=== PATIENT | female | born 1950 | race Caucasian/White ===

== ENCOUNTER → 2020-11-21 | Outpatient (CLI) | payer MEDICARE ==
[2020-11-21 16:22] LABS: Appearance, Urine Hazy (Clear); Bilirubin, Urine Neg (Neg); Blood, Urine Neg (Neg); Color, Urine Yellow (P-Yellow); Glucose Qualitative, Urine Neg (Neg); Ketones, Urine Neg (Neg); Leukocyte Esterase, Urine Neg (Neg); Nitrite, Urine Neg (Neg); Protein, Urine 1+ (Neg); Urobilinogen, Urine NORM (Normal)
[2020-11-21 16:49] LABS: Red Blood Cells, Urine Not Seen /hpf (0-2); Squamous Epithelial Cells Mod /hpf (Few); White Blood Cells, Urine 0-2 /hpf (0-5)
[2020-11-21 16:50] LABS: Amorphous Light (0-Heavy); Bacteria Few /hpf
== END | disposition home or self-care (01) ==
LOC: LAB 13:00 → LAB SHORT 13:00 → LAB FUT 11-14 14:35
PROVIDERS: Student in an Organized Health Care Education/Training Program
DX: R06.02 Shortness of breath (principal); R05 Cough
CPT/HCPCS: 81001; 87070; 87205

== ENCOUNTER → 2021-02-03 | Outpatient (CLI) | payer MEDICARE | END | disposition home or self-care (01) | LOC: LAB SHORT 17:47 → LAB 17:47 | DX: R39.15 Urgency of urination (principal) | CPT/HCPCS: 87077; 87086; 87186 ==

== ENCOUNTER → 2021-03-04 | Outpatient (CLI) | payer MEDICARE ==
[2021-03-04 15:41] LABS: Source, Urine Clean Catch
[2021-03-04 16:37] LABS: Appearance, Urine Hazy (Clear); Bilirubin, Urine Neg (Neg); Blood, Urine 1+ (Neg); Color, Urine Yellow (P-Yellow); Glucose Qualitative, Urine Neg (Neg); Ketones, Urine 1+ (Neg); Leukocyte Esterase, Urine 1+ (Neg); Nitrite, Urine Neg (Neg); Protein, Urine 2+ (Neg); Urobilinogen, Urine 1+ (Normal)
[2021-03-04 16:50] LABS: Red Blood Cells, Urine 0-2 /hpf (0-2); White Blood Cells, Urine 25-50 /hpf (0-5)
[2021-03-04 16:51] LABS: Amorphous Light (0-Heavy); Bacteria Many /hpf; Squamous Epithelial Cells Mod /hpf (Few)
== END | disposition home or self-care (01) ==
LOC: LAB SHORT 15:39
PROVIDERS: Student in an Organized Health Care Education/Training Program
DX: R30.0 Dysuria (principal)
CPT/HCPCS: 81001; 87077; 87086; 87186

== ENCOUNTER 2021-03-17 13:13 | Emergency (ER) | payer MEDICARE ==
[~2021-03-17] VITALS: Ht 160 cm; Wt 104.3 kg
== END 2021-03-17 15:41 | disposition home or self-care (01) ==
LOC: ER 13:13
DX: U07.1 COVID-19 (principal); Z88.0 Allergy status to penicillin
CPT/HCPCS: 99284-25; M0243; Q0243

== ENCOUNTER → 2021-10-27 | Outpatient (CLI) | payer MEDICARE, BC | END | disposition home or self-care (01) | LOC: LAB SHORT 15:00 → LAB 15:00 | DX: N39.0 Urinary tract infection, site not specified (principal) | CPT/HCPCS: 87077; 87086; 87186 ==

== ENCOUNTER 2021-11-26 10:19 | Emergency (ER) | payer MEDICARE, BC ==
[~2021-11-26] VITALS: Ht 157.5 cm; Wt 104.3 kg
== END 2021-11-26 10:43 | disposition home or self-care (01) ==
LOC: ER 10:19
DX: U07.1 COVID-19 (principal); F17.290 Nicotine dependence, other tobacco product, uncomplicated; Z88.0 Allergy status to penicillin; Z88.8 Allergy status to other drugs, medicaments and biological substances
CPT/HCPCS: 99283

== ENCOUNTER → 2022-01-05 | Outpatient (CLI) | payer MEDICARE, BC | END | disposition home or self-care (01) | LOC: LAB SHORT 13:30 | DX: N39.0 Urinary tract infection, site not specified (principal) | CPT/HCPCS: 87077; 87086; 87186 ==

== ENCOUNTER → 2022-01-20 | Outpatient (CLI) | payer MEDICARE, BC | END | disposition home or self-care (01) | LOC: LAB SHORT 15:23 | DX: N39.0 Urinary tract infection, site not specified (principal) | CPT/HCPCS: 87077; 87086; 87186 ==

== ENCOUNTER 2022-01-25 13:33 | Emergency (ER) | payer MEDICARE, BC ==
[~2022-01-25] VITALS: Ht 157.5 cm; Wt 104.3 kg
[2022-01-25 14:27] LABS: BASOPHILS ABSOLUTE AUTO 0.06 K/mm3 (0.00-0.23); BASOPHILS PERCENT AUTO 1 % (0-2); EOSINOPHILS ABSOLUTE AUTO 0.15 K/mm3 (0.00-0.68); EOSINOPHILS PERCENT AUTO 2 % (0-6); Hemoglobin 15.7 g/dL (11.5-16.0); IMMATURE GRAN ABSOLUTE AUTO 0.03 K/mm3 (0.00-0.10); IMMATURE GRAN PERCENT AUTO 0 % (0-1); LYMPHOCYTES ABSOLUTE AUTO 0.79 K/mm3 (0.84-5.20); LYMPHOCYTES PERCENT AUTO 11 % (21-46); MONOCYTES ABSOLUTE AUTO 0.76 K/mm3 (0.16-1.47); MONOCYTES PERCENT AUTO 10 % (4-13); Mean Corpuscular HGB 33.3 pg (26.0-34.0); Mean Corpuscular HGB Conc 34.9 g/dL (31.5-36.5); Mean Corpuscular Volume 96 fL (80-100); Mean Platelet Volume 10.3 fL (9.1-12.4); NEUTROPHILS ABSOLUTE AUTO 5.69 K/mm3 (1.96-9.15); NEUTROPHILS PERCENT AUTO 76 % (41-73); Platelet Count 179 K/mm3 (150-400); RDW Standard Deviation 41.7 fL (35.1-46.3); Red Blood Cell Count 4.71 M/mm3 (3.80-5.20); White Blood Cell Count 7.48 K/mm3 (4.00-11.30)
[2022-01-25 14:49] LABS: Albumin, Blood 3.2 g/dL (3.4-5.0); Albumin/Globulin Ratio 0.9 (0.8-1.8); Bilirubin, Total 1.1 mg/dL (0.1-1.0); Bun/Creatinine Ratio 8.4 (12.0-20.0); Calcium, Blood 8.9 mg/dL (8.5-10.1); Creatinine, Blood 0.95 mg/dL (0.40-1.00); Globulin, Blood 3.7 g/dL (2.2-4.0); Potassium, Blood 4.2 mmol/L (3.5-5.5); Total Protein, Blood 6.9 g/dL (6.4-8.2)
[2022-01-25 15:52] LABS: Source, Urine Clean Catch
[2022-01-25 15:55] LABS: Appearance, Urine Cloudy (Clear); Blood, Urine 2+ (Neg); Color, Urine Yellow (P-Yellow); Glucose Qualitative, Urine Neg (Neg); Ketones, Urine 3+ (Neg); Leukocyte Esterase, Urine 1+ (Neg); Nitrite, Urine Neg (Neg); Protein, Urine 2+ (Neg); Urobilinogen, Urine 1+ (Normal)
[2022-01-25 16:18] LABS: Bilirubin, Urine 1+ (Neg)
[2022-01-25 16:22] LABS: Bacteria Mod /hpf; Mucus Light (0-Heavy); Red Blood Cells, Urine 0-2 /hpf (0-2); Squamous Epithelial Cells Many /hpf (Few); Transitional Epithelial Cells Rare /hpf (0-Rare); White Blood Cells, Urine 0-2 /hpf (0-5)
[2022-01-25] MEDS ORDERED: CEFP200 PO (16:38)
[2022-01-25] MEDS ORDERED: KETO10 PO (16:38)
[2022-01-25] MEDS ORDERED: Diflucan150 MG PO (16:41)
== END 2022-01-25 17:15 | disposition home or self-care (01) ==
LOC: ER 13:33
PROVIDERS: Emergency Medicine
DX: N39.0 Urinary tract infection, site not specified (principal); F17.290 Nicotine dependence, other tobacco product, uncomplicated; Z88.0 Allergy status to penicillin; Z88.2 Allergy status to sulfonamides; Z88.8 Allergy status to other drugs, medicaments and biological substances; Z91.040 Latex allergy status; Z79.899 Other long term (current) drug therapy
CPT/HCPCS: 36415; 74176; 80053; 81001; 85025; A9270; J0696; J1885; J7030

== ENCOUNTER 2022-02-22 01:03 | Emergency (ER) | payer MEDICARE, BC ==
[~2022-02-22] VITALS: Ht 157.5 cm; Wt 96.6 kg
[~2022-02-22 01:03] MED LIST: CEFP200 PO; Diflucan150 MG PO; KETO10 PO
[2022-02-22 01:35] LABS: Source, Urine Voided
[2022-02-22 01:39] LABS: Bilirubin, Urine Neg (Neg); Blood, Urine Neg (Neg); Glucose Qualitative, Urine Neg (Neg); Ketones, Urine Neg (Neg); Leukocyte Esterase, Urine 1+ (Neg); Nitrite, Urine Neg (Neg); Protein, Urine Neg (Neg); Specific Gravity, Urine 1.005 (1.003-1.022); Urobilinogen, Urine NORM (Normal)
[2022-02-22 01:46] LABS: Appearance, Urine Clear (Clear); Color, Urine Pale Yellow (P-Yellow)
[2022-02-22 01:47] LABS: Bacteria Few /hpf; Red Blood Cells, Urine Not Seen /hpf (0-2); Squamous Epithelial Cells Few /hpf (Few); White Blood Cells, Urine 0-2 /hpf (0-5)
[2022-02-22 02:30] LABS: BASOPHILS PERCENT AUTO 2 % (0-2); EOSINOPHILS ABSOLUTE AUTO 0.28 K/mm3 (0.00-0.68); EOSINOPHILS PERCENT AUTO 4 % (0-6); Hematocrit 42.6 % (33.0-51.0); Hemoglobin 14.8 g/dL (11.5-16.0); IMMATURE GRAN ABSOLUTE AUTO 0.02 K/mm3 (0.00-0.10); IMMATURE GRAN PERCENT AUTO 0 % (0-1); LYMPHOCYTES ABSOLUTE AUTO 1.44 K/mm3 (0.84-5.20); LYMPHOCYTES PERCENT AUTO 22 % (21-46); MONOCYTES ABSOLUTE AUTO 0.75 K/mm3 (0.16-1.47); MONOCYTES PERCENT AUTO 11 % (4-13); Mean Corpuscular HGB 32.8 pg (26.0-34.0); Mean Corpuscular HGB Conc 34.7 g/dL (31.5-36.5); Mean Corpuscular Volume 95 fL (80-100); Mean Platelet Volume 10.1 fL (9.1-12.4); NEUTROPHILS ABSOLUTE AUTO 4.02 K/mm3 (1.96-9.15); NEUTROPHILS PERCENT AUTO 61 % (41-73); Platelet Count 183 K/mm3 (150-400); RDW Coefficient Variation 11.9 % (11.7-14.2); RDW Standard Deviation 41.6 fL (35.1-46.3); Red Blood Cell Count 4.51 M/mm3 (3.80-5.20); White Blood Cell Count 6.61 K/mm3 (4.00-11.30)
[2022-02-22 02:59] LABS: Albumin, Blood 3.2 g/dL (3.4-5.0); Albumin/Globulin Ratio 0.9 (0.8-1.8); Bilirubin, Direct 0.3 mg/dL (0.0-0.3); Bilirubin, Indirect 0.3 mg/dL (0.1-0.7); Bilirubin, Total 0.6 mg/dL (0.1-1.0); Bun/Creatinine Ratio 7.5 (12.0-20.0); Calcium, Blood 8.9 mg/dL (8.5-10.1); Creatinine, Blood 0.8 mg/dL (0.40-1.00); Globulin, Blood 3.6 g/dL (2.2-4.0); Magnesium, Blood 2.1 mg/dL (1.6-2.4); Potassium, Blood 3.4 mmol/L (3.5-5.5); Total Protein, Blood 6.8 g/dL (6.4-8.2)
[2022-02-22] MEDS ORDERED: CEPH500 PO (06:40)
== END 2022-02-22 07:22 | disposition home or self-care (01) ==
LOC: ER 01:03
PROVIDERS: Student in an Organized Health Care Education/Training Program
DX: R55 Syncope and collapse (principal); N20.0 Calculus of kidney; T36.1X5A Adverse effect of cephalosporins and other beta-lactam antibiotics, initial encounter; Z88.0 Allergy status to penicillin; Z88.2 Allergy status to sulfonamides; Z91.040 Latex allergy status; Z88.8 Allergy status to other drugs, medicaments and biological substances; Z79.899 Other long term (current) drug therapy
CPT/HCPCS: 36415; 71046; 74176; 80048; 80076; 81001; 83690; 83735; 84484; 85025; 93005; 93010; 96361; 96372-59; 96374; 99285-25; A9270; J1885; J2405; J7030

== ENCOUNTER 2022-04-12 13:25 | Emergency (ER) | payer MEDICARE, BC ==
[~2022-04-12 13:25] MED LIST changes: +CEPH500 PO
[2022-04-12] MEDS ORDERED: HYDROXYZINE PAM25 MG PO (15:09)
[2022-04-12] MEDS ORDERED: ATOR40TA PO (15:09)
[2022-04-12] MEDS ORDERED: AMLODIPINE BESYL5 MG PO (15:09)
[2022-04-12] MEDS ORDERED: MONT5TCH (15:10)
[2022-04-12] MEDS ORDERED: OMEPRAZOLE 20MG CAPS (15:10)
[2022-04-12] MEDS ORDERED: Nortriptyl10 MG/5 ML PO (15:12)
[2022-04-12] MEDS ORDERED: PROM25 PO (21:47)
== END 2022-04-12 22:10 | disposition home or self-care (01) ==
DX: R11.2 Nausea with vomiting, unspecified (principal); R53.1 Weakness; E86.0 Dehydration; R32 Unspecified urinary incontinence; J45.909 Unspecified asthma, uncomplicated; F17.290 Nicotine dependence, other tobacco product, uncomplicated; Z20.822 Contact with and (suspected) exposure to COVID-19; Z88.0 Allergy status to penicillin; Z88.2 Allergy status to sulfonamides; Z88.8 Allergy status to other drugs, medicaments and biological substances; Z91.040 Latex allergy status; Z79.899 Other long term (current) drug therapy

== ENCOUNTER → 2022-04-21 | Outpatient (CLI) | payer MEDICARE, BC ==
[~2022-04-21] MED LIST changes: +AMLODIPINE BESYL5 MG PO; +ATOR40TA PO; +HYDROXYZINE PAM25 MG PO; +MONT5TCH; +Nortriptyl10 MG/5 ML PO; +OMEPRAZOLE 20MG CAPS; +PROM25 PO
== END | disposition home or self-care (01) ==
LOC: LAB SHORT 16:00
DX: R31.9 Hematuria, unspecified (principal)
CPT/HCPCS: 87077; 87086; 87186

== ENCOUNTER 2022-08-20 08:32 | Emergency (ER) | payer MEDICARE, BC ==
[~2022-08-20] VITALS: Ht 157.5 cm; Wt 98.9 kg
[~2022-08-20 08:32] MED LIST changes: +CEFDINIR300 M1 PO; +OXAYDO5 M1 PO
[2022-08-20 10:15] LABS: BASOPHILS ABSOLUTE AUTO 0.05 K/mm3 (0.00-0.23); BASOPHILS PERCENT AUTO 1 % (0-2); EOSINOPHILS ABSOLUTE AUTO 0.22 K/mm3 (0.00-0.68); EOSINOPHILS PERCENT AUTO 3 % (0-6); Hematocrit 40.2 % (33.0-51.0); Hemoglobin 14.6 g/dL (11.5-16.0); IMMATURE GRAN ABSOLUTE AUTO 0.03 K/mm3 (0.00-0.10); IMMATURE GRAN PERCENT AUTO 0 % (0-1); LYMPHOCYTES ABSOLUTE AUTO 0.83 K/mm3 (0.84-5.20); LYMPHOCYTES PERCENT AUTO 11 % (21-46); MONOCYTES ABSOLUTE AUTO 0.74 K/mm3 (0.16-1.47); MONOCYTES PERCENT AUTO 10 % (4-13); Mean Corpuscular HGB 36.8 pg (26.0-34.0); Mean Corpuscular HGB Conc 36.3 g/dL (31.5-36.5); Mean Corpuscular Volume 101 fL (80-100); Mean Platelet Volume 10.9 fL (9.1-12.4); NEUTROPHILS PERCENT AUTO 75 % (41-73); Platelet Count 100 K/mm3 (150-400); RDW Coefficient Variation 13.7 % (11.7-14.2); RDW Standard Deviation 50.8 fL (35.1-46.3); Red Blood Cell Count 3.97 M/mm3 (3.80-5.20); White Blood Cell Count 7.47 K/mm3 (4.00-11.30)
[2022-08-20 10:26] LABS: Albumin, Blood 3.3 g/dL (3.4-5.0); Albumin/Globulin Ratio 0.8 (0.8-1.8); Bilirubin, Total 1.2 mg/dL (0.1-1.0); Bun/Creatinine Ratio 11.7 (12.0-20.0); Calcium, Blood 9.4 mg/dL (8.5-10.1); Creatinine, Blood 0.68 mg/dL (0.40-1.00); Globulin, Blood 3.9 g/dL (2.2-4.0); Potassium, Blood 3.1 mmol/L (3.5-5.5); Total Protein, Blood 7.2 g/dL (6.4-8.2)
[2022-08-20 11:34] LABS: Source, Urine Clean Catch
[2022-08-20 11:39] LABS: Appearance, Urine Clear (Clear); Blood, Urine Neg (Neg); Color, Urine Amber (P-Yellow); Glucose Qualitative, Urine Neg (Neg); Ketones, Urine 4+ (Neg); Leukocyte Esterase, Urine 1+ (Neg); Nitrite, Urine Pos (Neg); Protein, Urine 2+ (Neg); Urobilinogen, Urine 3+ (Normal)
[2022-08-20 11:46] LABS: Bilirubin, Urine 2+ (Neg)
[2022-08-20] MEDS ORDERED: TAMS.4ER PO (11:57)
[2022-08-20] MEDS ORDERED: CEFP200 PO (11:57)
[2022-08-20 12:02] LABS: Bacteria Few /hpf; Red Blood Cells, Urine Not Seen /hpf (0-2); Squamous Epithelial Cells Few /hpf (Few)
== END 2022-08-20 13:13 | disposition home or self-care (01) ==
LOC: ER 08:32
PROVIDERS: Emergency Medicine
DX: N39.0 Urinary tract infection, site not specified (principal); D69.6 Thrombocytopenia, unspecified; N20.0 Calculus of kidney; Z90.5 Acquired absence of kidney; E87.6 Hypokalemia; K76.0 Fatty (change of) liver, not elsewhere classified; K80.20 Calculus of gallbladder without cholecystitis without obstruction; K44.9 Diaphragmatic hernia without obstruction or gangrene; K57.30 Diverticulosis of large intestine without perforation or abscess without bleeding; J45.909 Unspecified asthma, uncomplicated; F17.290 Nicotine dependence, other tobacco product, uncomplicated; Z88.0 Allergy status to penicillin; Z88.2 Allergy status to sulfonamides; Z88.8 Allergy status to other drugs, medicaments and biological substances; Z91.040 Latex allergy status; Z79.899 Other long term (current) drug therapy
CPT/HCPCS: 74176; 80053; 81001; 85025; A9270; J0696; J2405; J3010; J7030; P9612

== ENCOUNTER → 2022-08-26 | Outpatient (CLI) | payer MEDICARE, BC ==
[~2022-08-26] MED LIST changes: +TAMS.4ER PO
== END | disposition home or self-care (01) ==
LOC: LAB SHORT 10:05 → LAB 10:05
DX: R35.0 Frequency of micturition (principal)
CPT/HCPCS: 87086

== ENCOUNTER 2022-09-12 13:08 | Inpatient (IN) | payer MEDICARE, BC ==
[~2022-09-12] VITALS: Ht 157.5 cm; Wt 99.0 kg
[~2022-09-12 13:08] MED LIST changes: +MONT10T PO; -MONT5TCH; -OMEPRAZOLE 20MG CAPS; +Prilosec Otc20 MG PO
[2022-09-12 13:42] LABS: BASOPHILS ABSOLUTE AUTO 0.11 K/mm3 (0.00-0.23); BASOPHILS PERCENT AUTO 2 % (0-2); EOSINOPHILS ABSOLUTE AUTO 0.14 K/mm3 (0.00-0.68); EOSINOPHILS PERCENT AUTO 3 % (0-6); Hematocrit 39.7 % (33.0-51.0); IMMATURE GRAN ABSOLUTE AUTO 0.02 K/mm3 (0.00-0.10); IMMATURE GRAN PERCENT AUTO 0 % (0-1); LYMPHOCYTES ABSOLUTE AUTO 0.77 K/mm3 (0.84-5.20); LYMPHOCYTES PERCENT AUTO 14 % (21-46); MONOCYTES ABSOLUTE AUTO 0.49 K/mm3 (0.16-1.47); MONOCYTES PERCENT AUTO 9 % (4-13); Mean Corpuscular HGB 36.3 pg (26.0-34.0); Mean Corpuscular HGB Conc 35.3 g/dL (31.5-36.5); Mean Corpuscular Volume 103 fL (80-100); Mean Platelet Volume 10.1 fL (9.1-12.4); NEUTROPHILS ABSOLUTE AUTO 3.83 K/mm3 (1.96-9.15); NEUTROPHILS PERCENT AUTO 71 % (41-73); Platelet Count 107 K/mm3 (150-400); RDW Coefficient Variation 13.5 % (11.7-14.2); RDW Standard Deviation 51.4 fL (35.1-46.3); Red Blood Cell Count 3.86 M/mm3 (3.80-5.20); White Blood Cell Count 5.36 K/mm3 (4.00-11.30)
[2022-09-12 14:08] LABS: Albumin, Blood 3.1 g/dL (3.4-5.0); Albumin/Globulin Ratio 0.9 (0.8-1.8); Bilirubin, Total 1.9 mg/dL (0.1-1.0); Bun/Creatinine Ratio 16.7 (12.0-20.0); Calcium, Blood 9.2 mg/dL (8.5-10.1); Creatinine, Blood 0.6 mg/dL (0.40-1.00); Globulin, Blood 3.5 g/dL (2.2-4.0); Potassium, Blood 3.6 mmol/L (3.5-5.5); Total Protein, Blood 6.6 g/dL (6.4-8.2)
[2022-09-12 18:41] LABS: Influenza A, PCR NEGATIVE (NEGATIVE); Influenza B, PCR NEGATIVE (NEGATIVE); Resp Syncytial Virus, PCR NEGATIVE (NEGATIVE); SARS-Cov-2 (COVID-19) PCR, MMC NEGATIVE (NEGATIVE)
[2022-09-12 20:03] LABS: Source, Urine Clean Catch
[2022-09-12 20:08] LABS: Appearance, Urine Clear (Clear); Bilirubin, Urine Neg (Neg); Blood, Urine 3+ (Neg); Color, Urine Yellow (P-Yellow); Glucose Qualitative, Urine Neg (Neg); Ketones, Urine 4+ (Neg); Leukocyte Esterase, Urine Neg (Neg); Nitrite, Urine Neg (Neg); Protein, Urine 1+ (Neg); Urobilinogen, Urine 1+ (Normal)
[2022-09-12 20:34] LABS: White Blood Cells, Urine 0-2 /hpf (0-5)
[2022-09-12 20:35] LABS: Bacteria Few /hpf; Squamous Epithelial Cells Mod /hpf (Few)
[2022-09-12 21:55] VITALS: BP 152/74
[2022-09-12 22:00] VITALS: BP 161/84
[2022-09-12 22:15] VITALS: BP 155/80
[2022-09-12 22:45] LABS: Base Excess Venous -4.7 mmol/L; Bicarbonate Venous 20.6 mmol/L (24.0-30.0); PCO2 Venous 39.2 mmHg (38-42)
[2022-09-12 22:46] LABS: pH Blood Venous 7.34 (7.34-7.37)
[2022-09-12 23:01] VITALS: BP 139/71
[2022-09-13] VITALS (24 sets, daily range): BP systolic 110–147; BP diastolic 66–108
--- NOTE | 2022-09-13 06:00 | NUR ---
SHIFT SUMMERY PT IS RESTING COMFORTABLY W/EYES CLOSED AT THIS TIME. SHE IS ALERT AND ORIENTED X4, ETOH W/DRAWAL W/TREMOR AND VISUAL HALLUCINATIONS. SHE IS INCONTINIENT OF URINE. SHE HAS GENERALIZED WEAKNESS AND HAS HAD SOME NAUSEA BUT NO VOMITING SINCE ARRIVING TO ICU. VS HAVE BEEN STABLE, PT HAS BEEN AFEBRILE. SHE IS ON 2L NC SATS 96% CURRENTLY. CIWA MAX OF 16 THIS SHIFT. ATIVAN AND LIBRIUM GIVEN PER EMAR NEEDED. NO ACUTE DISTRESS OVERNIGHT.
[2022-09-13 06:12] LABS: BASOPHILS ABSOLUTE AUTO 0.04 K/mm3 (0.00-0.23); BASOPHILS PERCENT AUTO 1 % (0-2); EOSINOPHILS ABSOLUTE AUTO 0.28 K/mm3 (0.00-0.68); EOSINOPHILS PERCENT AUTO 5 % (0-6); Hematocrit 33.6 % (33.0-51.0); Hemoglobin 11.5 g/dL (11.5-16.0); IMMATURE GRAN ABSOLUTE AUTO 0.01 K/mm3 (0.00-0.10); IMMATURE GRAN PERCENT AUTO 0 % (0-1); LYMPHOCYTES ABSOLUTE AUTO 0.37 K/mm3 (0.84-5.20); LYMPHOCYTES PERCENT AUTO 7 % (21-46); MONOCYTES ABSOLUTE AUTO 0.53 K/mm3 (0.16-1.47); MONOCYTES PERCENT AUTO 10 % (4-13); Mean Corpuscular HGB 36.2 pg (26.0-34.0); Mean Corpuscular HGB Conc 34.2 g/dL (31.5-36.5); Mean Corpuscular Volume 106 fL (80-100); Mean Platelet Volume 10.5 fL (9.1-12.4); NEUTROPHILS ABSOLUTE AUTO 3.92 K/mm3 (1.96-9.15); NEUTROPHILS PERCENT AUTO 76 % (41-73); Platelet Count 83 K/mm3 (150-400); RDW Coefficient Variation 13.1 % (11.7-14.2); RDW Standard Deviation 51.5 fL (35.1-46.3); Red Blood Cell Count 3.18 M/mm3 (3.80-5.20); White Blood Cell Count 5.15 K/mm3 (4.00-11.30)
[2022-09-13 06:40] LABS: Albumin, Blood 2.5 g/dL (3.4-5.0); Albumin/Globulin Ratio 0.8 (0.8-1.8); Bilirubin, Total 1.8 mg/dL (0.1-1.0); Bun/Creatinine Ratio 14.2 (12.0-20.0); Calcium, Blood 7.9 mg/dL (8.5-10.1); Creatinine, Blood 0.57 mg/dL (0.40-1.00); Globulin, Blood 3.1 g/dL (2.2-4.0); Potassium, Blood 3.4 mmol/L (3.5-5.5); Total Protein, Blood 5.6 g/dL (6.4-8.2)
--- NOTE | 2022-09-13 08:30 | NUR ---
ASSUMPTION OF CARE NOTE PT SLEEPING AT BEGINNING OF SHIFT. CURRENTLY ON 2L NC, APPEARS TO NEED O2 WHILE SLEEPING ONLY. ALL OTHER VSS. CIWA ON ASSESSMENT WAS 16. GOAL FOR TODAY IS TO HAVE HIDA SCAN TO DETERMINE SOURCE OF ABD PAIN.
--- NOTE | 2022-09-13 15:19 | NUR ---
UPDATE NUC MED STUDY COMPLETED THIS AM. PT HAS 8/10 ABDOMINAL PAIN, MEDICATED PER EMAR. CONTINUING CIWA SCORES AND MEDICATING PER EMAR. FAMILY AT BEDSIDE AND UPDATED ON PLAN OF CARE. PUREWICK IN PLACE. BED IN LOW POSITION AND CALL LIGHT WITHIN REACH.
[2022-09-14] VITALS (21 sets, daily range): BP systolic 109–150; BP diastolic 65–97
[2022-09-14 04:55] LABS: BASOPHILS ABSOLUTE AUTO 0.04 K/mm3 (0.00-0.23); BASOPHILS PERCENT AUTO 1 % (0-2); EOSINOPHILS ABSOLUTE AUTO 0.39 K/mm3 (0.00-0.68); EOSINOPHILS PERCENT AUTO 7 % (0-6); Hematocrit 36.3 % (33.0-51.0); Hemoglobin 12.6 g/dL (11.5-16.0); IMMATURE GRAN ABSOLUTE AUTO 0.03 K/mm3 (0.00-0.10); IMMATURE GRAN PERCENT AUTO 1 % (0-1); LYMPHOCYTES ABSOLUTE AUTO 0.55 K/mm3 (0.84-5.20); LYMPHOCYTES PERCENT AUTO 9 % (21-46); MONOCYTES ABSOLUTE AUTO 0.44 K/mm3 (0.16-1.47); MONOCYTES PERCENT AUTO 8 % (4-13); Mean Corpuscular HGB 35.9 pg (26.0-34.0); Mean Corpuscular HGB Conc 34.7 g/dL (31.5-36.5); Mean Corpuscular Volume 103 fL (80-100); Mean Platelet Volume 10.6 fL (9.1-12.4); NEUTROPHILS ABSOLUTE AUTO 4.38 K/mm3 (1.96-9.15); NEUTROPHILS PERCENT AUTO 75 % (41-73); Platelet Count 72 K/mm3 (150-400); RDW Coefficient Variation 12.9 % (11.7-14.2); RDW Standard Deviation 49.2 fL (35.1-46.3); Red Blood Cell Count 3.51 M/mm3 (3.80-5.20); White Blood Cell Count 5.83 K/mm3 (4.00-11.30)
[2022-09-14 05:10] LABS: Albumin, Blood 2.6 g/dL (3.4-5.0); Albumin/Globulin Ratio 0.9 (0.8-1.8); Bilirubin, Total 1.3 mg/dL (0.1-1.0); Bun/Creatinine Ratio 8.3 (12.0-20.0); Calcium, Blood 8.9 mg/dL (8.5-10.1); Creatinine, Blood 0.6 mg/dL (0.40-1.00); Magnesium, Blood 1.5 mg/dL (1.6-2.4); Potassium, Blood 3.3 mmol/L (3.5-5.5); Total Protein, Blood 5.6 g/dL (6.4-8.2)
--- NOTE | 2022-09-14 05:43 | NUR ---
SHIFT SUMMERY PT HAS BEEN ALERT AND ORIENTED X4 W/SOME VISUAL HALLUCINATIONS OVERNIGHT. HER MAX CIWA WAS 20, SHE IS NOW RESTING COMFORTABLY W/EYES CLOSED. 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 OXYGEN SAT 95% OF 4L NC. SHE WAS MEDICATED PER EMAR BASED ON ORDERS. SHE HAS GENERALIZED WEAKNESS. SHE IS COOPERATIVE W/CARE AND ABLE TO MAKE NEEDS KNOWN. NO ACUTE CHANGES OVERNIGHT.
--- NOTE | 2022-09-14 11:38 | NUR ---
ASSUMPTION OF CARE NOTE PT RESTING COMFORTABLY UPON ENTERING ROOM. CONTINUING TO MONITOR FOR ALCOHOL WITHDRAWAL. STILL UNABLE TO GET OUT OF BED. GENERALIZED PAIN THROUGHOUT ENTIRE BODY PARTNER TO SEE PT THIS AM. IF CIWA SCORES DOWNTREND TODAY, PT WILL POTENTIALLY DOWNGRADE
--- NOTE | 2022-09-14 18:49 | NUR ---
SHIFT SUMMARY SPOUSE AT BEDSIDE MOST OF THE DAY. CIWA SCORES DECLINING. LAST SCORE WAS 10. REFUSED PT AND OT TODAY. DOWNGRADED TO PCU STATUS. VSS THROUGHOUT SHIFT. REMAINS ON 2L NC MAINLY FOR SLEEP APEA.
[2022-09-15 00:15] VITALS: BP 130/88
[2022-09-15 04:34] VITALS: BP 103/77
--- NOTE | 2022-09-15 04:36 | NUR ---
SHIFT SUMMARY A/OX3, FORGETFUL AT TIMES. INCONT, ATTENDS AND PUREWICK IN PLACE. PG TO CANDICE. SPO2 >92% ON 3L NC. TELE ST 100-115, DENIES CHEST PAIN/PRESSURE. CIWA 12>, VISUAL AND TACTILE HALLUCINATIONS NOTED. VSS, NO ACUTE CHANGES AT THIS TIME. BED IN LOWEST POSTION WITH CALL LIGHT IN REACH. WILL CONTINUE TO MONITOR AND REPORT TO ONCOMING RN.
[2022-09-15 05:45] LABS: BASOPHILS ABSOLUTE AUTO 0.05 K/mm3 (0.00-0.23); BASOPHILS PERCENT AUTO 1 % (0-2); EOSINOPHILS ABSOLUTE AUTO 0.57 K/mm3 (0.00-0.68); EOSINOPHILS PERCENT AUTO 10 % (0-6); Hematocrit 38.8 % (33.0-51.0); Hemoglobin 13.4 g/dL (11.5-16.0); IMMATURE GRAN ABSOLUTE AUTO 0.03 K/mm3 (0.00-0.10); IMMATURE GRAN PERCENT AUTO 1 % (0-1); LYMPHOCYTES ABSOLUTE AUTO 0.71 K/mm3 (0.84-5.20); LYMPHOCYTES PERCENT AUTO 12 % (21-46); MONOCYTES ABSOLUTE AUTO 0.53 K/mm3 (0.16-1.47); MONOCYTES PERCENT AUTO 9 % (4-13); Mean Corpuscular HGB 36.3 pg (26.0-34.0); Mean Corpuscular HGB Conc 34.5 g/dL (31.5-36.5); Mean Corpuscular Volume 105 fL (80-100); Mean Platelet Volume 10.7 fL (9.1-12.4); NEUTROPHILS PERCENT AUTO 69 % (41-73); Platelet Count 78 K/mm3 (150-400); RDW Coefficient Variation 13.1 % (11.7-14.2); RDW Standard Deviation 50.7 fL (35.1-46.3); Red Blood Cell Count 3.69 M/mm3 (3.80-5.20); White Blood Cell Count 5.99 K/mm3 (4.00-11.30)
[2022-09-15 06:05] LABS: Albumin, Blood 2.5 g/dL (3.4-5.0); Albumin/Globulin Ratio 0.7 (0.8-1.8); Bilirubin, Total 1.1 mg/dL (0.1-1.0); Bun/Creatinine Ratio 9.5 (12.0-20.0); Calcium, Blood 9.4 mg/dL (8.5-10.1); Creatinine, Blood 0.74 mg/dL (0.40-1.00); Globulin, Blood 3.4 g/dL (2.2-4.0); Magnesium, Blood 1.9 mg/dL (1.6-2.4); Potassium, Blood 3.4 mmol/L (3.5-5.5); Total Protein, Blood 5.9 g/dL (6.4-8.2)
[2022-09-15 08:50] VITALS: BP 124/85
[2022-09-15 11:35] LABS: Bun/Creatinine Ratio 10.4 (12.0-20.0); Calcium, Blood 9.4 mg/dL (8.5-10.1); Creatinine, Blood 0.77 mg/dL (0.40-1.00); Potassium, Blood 3.9 mmol/L (3.5-5.5)
[2022-09-15 12:21] VITALS: BP 131/87
--- NOTE | 2022-09-15 19:38 | NUR ---
END OF SHIFT: PATIENT HAS MINIMALLY IMPROVING ORIENTATION. PATIENT STILL MILDLY CONFUSED, COMPLAINING OF PAIN BUT FALLING ASLEEP. PATIENT HAS BEEN ABLE UNABLE TO MAKE NEEDS KNOWN, PLEASANT, ROUNDING FREQUENT TO ACCESS CIWA. PATIENT HAS BEEN NEEDING LIBRIUM. PATIENT CIWA IN CONTROL WITH EMAR MEDICATIONS. PATIENT HAS WICKING SYSTEM IN PLACE, VERY DARK URINE AT THIS TIME. HAS BEEN SR TYPICALLY. DENIES CHETS PAIN PRESSURE OR SOB. TELE IN PLACE. IV'S FLUSHING WELL, POWERGLIDE DOES NOT DRAW AT THIS TIME, NEED TO DO DRESSING CHANGE DID NOT HAVE OPPORTUNITY WILL INFORM NIGHT RN. PATIENT IN THE ROOM EDUCATED WELL. PATIENT IMPROVED ORAL INTAKE AND MINIMAL INCREASE TO SENSES. STILL TREMULOUS AT TIMES, Q2 REPOSITIONS DID WORK WITH PT TO GET TO THE CHAIR FOR LUNCH AND A LITTLE AFTER LUNCH APPROX 45-1.5 HOURS. NO CONCERNS FOR THIS PATIENT AT THIS TIME WILL CONTINUE TO MONITOR UNTIL SHIFT CHANGE
[2022-09-15 20:42] VITALS: BP 109/81
[2022-09-15 23:54] VITALS: BP 127/84
[2022-09-16 03:41] VITALS: BP 117/74
[2022-09-16 04:00] LABS: BASOPHILS ABSOLUTE AUTO 0.06 K/mm3 (0.00-0.23); BASOPHILS PERCENT AUTO 1 % (0-2); EOSINOPHILS ABSOLUTE AUTO 0.54 K/mm3 (0.00-0.68); EOSINOPHILS PERCENT AUTO 7 % (0-6); Hemoglobin 13.1 g/dL (11.5-16.0); IMMATURE GRAN ABSOLUTE AUTO 0.03 K/mm3 (0.00-0.10); IMMATURE GRAN PERCENT AUTO 0 % (0-1); LYMPHOCYTES ABSOLUTE AUTO 0.71 K/mm3 (0.84-5.20); LYMPHOCYTES PERCENT AUTO 9 % (21-46); MONOCYTES PERCENT AUTO 9 % (4-13); Mean Corpuscular HGB Conc 33.6 g/dL (31.5-36.5); Mean Corpuscular Volume 107 fL (80-100); Mean Platelet Volume 11.5 fL (9.1-12.4); NEUTROPHILS ABSOLUTE AUTO 5.53 K/mm3 (1.96-9.15); NEUTROPHILS PERCENT AUTO 73 % (41-73); Platelet Count 94 K/mm3 (150-400); RDW Coefficient Variation 13.4 % (11.7-14.2); RDW Standard Deviation 53.2 fL (35.1-46.3); Red Blood Cell Count 3.64 M/mm3 (3.80-5.20); White Blood Cell Count 7.57 K/mm3 (4.00-11.30)
[2022-09-16 04:24] LABS: Albumin, Blood 2.7 g/dL (3.4-5.0); Albumin/Globulin Ratio 0.8 (0.8-1.8); Bilirubin, Total 1.1 mg/dL (0.1-1.0); Bun/Creatinine Ratio 15.5 (12.0-20.0); Calcium, Blood 9.4 mg/dL (8.5-10.1); Creatinine, Blood 0.78 mg/dL (0.40-1.00); Globulin, Blood 3.5 g/dL (2.2-4.0); Total Protein, Blood 6.2 g/dL (6.4-8.2)
--- NOTE | 2022-09-16 04:55 | NUR ---
SHIFT SUMMARY A/O 2-3, FORGETFUL. CIWA PER PROTOCOL, VISUAL/TACTILE HALLUCINATIONS NOTED. TELE SR/ST 90-110, DENIES CHEST PAIN/PRESSURE. VSS, NO ACUTE CHANGES AT THIS TIME. BED IN LOWEST POSITION WITH CALL LIGHT IN REACH. WILL CONTINUE TO MONTIOR AND REPORT TO ONCOMING RN.
[2022-09-16 07:10] VITALS: BP 105/62
[2022-09-16 12:07] VITALS: BP 115/74
--- NOTE | 2022-09-16 13:46 | NUR ---
PT A&O2-3, PLEASANT AND COOPERATIVE WITH CARE. LUNG SOUNDS CLEAR/DIMINISHED. ON 3L NC SATING ABOVE 94%. HR SR/ST 90'S-100'S. PT DENIES SOB OR CHEST PAIN/PRESSURE. HYPOACTIVE BOWEL TONES. PT'S SPOUSE BROUGHT HER BREAKFAST THIS MORNING FROM [employer]. GENERALIZED WEAKNESS THROUGHOUT, LETHARGIC. 1+ SWELLING OF RLE, 2+ SWELLING OF LLE, BILATERAL SEQUENTIAL DEVICES IN PLACE. WICKING DEVICE IN PLACE, CATHI COLORED OP. PT'S SPOUSE WAS IN ROOM THIS MORNING, MAY BE BACK LATER. PT WORKED WITH PT THIS MORNING. BEEN SLEEPING THE MAJORITY OF THE DAY, BLINDS OPEN. MORNING CIWA OF 13, 1200 CIWA OF 17, MEDICATED PER MAR. PT RESTING IN BED & CALL LIGHT WITHIN REACH.
[2022-09-16 13:49] LABS: International Normalized Ratio 1.06; Prothrombin Time Results 11.1 Sec (9.7-11.5)
[2022-09-16 15:25] VITALS: BP 104/76
--- NOTE | 2022-09-16 15:28 | NUR ---
CIWA SCORE OF 0, PT SLEEPING W/CPAP SATING ABOVE 94%. WILL RE-ASSESS WHEN PT WAKES UP.
--- NOTE | 2022-09-16 18:43 | NUR ---
NO ACUTE CHANGES, SEE PREVIUS NOTES. PT'S SPOUSE BROUGHT HER HUBERT ANDERSON FOR DINNER. CIWA'S PERFORMED AND PT MEDICATED PER MAR. REMAINS ON 3L NC WHEN AWAKE, USING CPAP DURING NAPS. NO CHANGES TO TELE. MINIMAL CATHI COLORED URINE OP, BLADDER SCAN PERFORMED SHOWING 52ML, PT ENCOURAGED TO INCREASE PO FLUIDS. PARTNER AT BEDSIDE & UPDATED THROUGHOUT SHIFT. CALL LIGHT WITHIN REACH.
--- NOTE | 2022-09-16 18:50 | NUR ---
THIS RN HAS REVIEWED AND AGREES WITH ALL TECHNICAL SUPPORT ASSISTANT DOCUMENTATION.
[2022-09-16 19:33] VITALS: BP 114/73
[2022-09-16 23:41] VITALS: BP 107/68
[2022-09-17 03:11] VITALS: BP 141/85
[2022-09-17 03:40] LABS: BASOPHILS ABSOLUTE AUTO 0.07 K/mm3 (0.00-0.23); BASOPHILS PERCENT AUTO 1 % (0-2); EOSINOPHILS ABSOLUTE AUTO 0.51 K/mm3 (0.00-0.68); EOSINOPHILS PERCENT AUTO 7 % (0-6); Hematocrit 38.2 % (33.0-51.0); Hemoglobin 12.9 g/dL (11.5-16.0); IMMATURE GRAN ABSOLUTE AUTO 0.03 K/mm3 (0.00-0.10); IMMATURE GRAN PERCENT AUTO 0 % (0-1); LYMPHOCYTES PERCENT AUTO 9 % (21-46); MONOCYTES ABSOLUTE AUTO 0.75 K/mm3 (0.16-1.47); MONOCYTES PERCENT AUTO 10 % (4-13); Mean Corpuscular HGB 36.3 pg (26.0-34.0); Mean Corpuscular HGB Conc 33.8 g/dL (31.5-36.5); Mean Corpuscular Volume 108 fL (80-100); Mean Platelet Volume 11.4 fL (9.1-12.4); NEUTROPHILS ABSOLUTE AUTO 5.66 K/mm3 (1.96-9.15); NEUTROPHILS PERCENT AUTO 73 % (41-73); Platelet Count 105 K/mm3 (150-400); RDW Coefficient Variation 13.3 % (11.7-14.2); RDW Standard Deviation 53.3 fL (35.1-46.3); Red Blood Cell Count 3.55 M/mm3 (3.80-5.20); White Blood Cell Count 7.72 K/mm3 (4.00-11.30)
[2022-09-17 04:00] LABS: Albumin, Blood 2.4 g/dL (3.4-5.0); Albumin/Globulin Ratio 0.7 (0.8-1.8); Bilirubin, Total 0.9 mg/dL (0.1-1.0); Bun/Creatinine Ratio 13.1 (12.0-20.0); Calcium, Blood 9.1 mg/dL (8.5-10.1); Creatinine, Blood 0.76 mg/dL (0.40-1.00); Globulin, Blood 3.3 g/dL (2.2-4.0); Potassium, Blood 3.7 mmol/L (3.5-5.5); Total Protein, Blood 5.7 g/dL (6.4-8.2)
--- NOTE | 2022-09-17 04:48 | NUR ---
SHIFT SUMMARY PT IS A&OX4, CIWAS 2-9, HAS BEEN DROWSY/SLEEPING MOST OF THE SHIFT. SHE HAS BEEN ON 3-4L NC AND SP02>90%. SHE HAS NO COMPLAINTS OF CHEST PAIN OR SOB. SHE WAS COMPLAINING OF ITCHING T/O HER BODY, A HEADACHE, NAUSEA, WEAKNESS, AND SHE HAS MILD TREMORS. PT HAS BEEN A Q2 HOUR TURN, HAS A PURWICK SET UP TO SUCTION. PT HAVING OLIGURIA W/ CATHI COLORED URINE. NO BOWEL MOVEMENT THIS SHIFT. BED ALARM ON, BED IN LOW, CALL LIGHT IN REACH.
[2022-09-17 08:17] VITALS: BP 117/73
[2022-09-17 11:39] VITALS: BP 102/73
--- NOTE | 2022-09-17 16:05 | NUR ---
TRANSFER TO MEDICAL PT A&O X3. VSS. SPO2 > 92% ON RA. MONITOR SHOWING NSR PRIOR TO TELE ORDER DISCONTINUATION. PT CIWA < 4 THIS SHIFT. PT 1 PERSON ASSIST W/ FWW & GB FOR OOB TRANSFER. PT INCONTINENT W/ REPORT OF URGENCY WHEN NEEDING TO VOID. PUREWICK IN PLACE, DISCONTINUED PRIOR TO TRANSFER TO MEDICAL FLOOR. ATTENDS IN PLACE, C/D/I. REPORT CALLED TO ACCEPTING MEDICAL FLOOR RN. PT TAKEN TO RM 336 BY BED W/ BELONGINGS & FAMILY @ APPROX 1600.
--- NOTE | 2022-09-17 16:25 | NUR ---
Pt arrived to 336 via bed from pcu, report recieved from Yamilet smarni. in attendence, pt very flat, a/ox3, cooperative with care, follows commands but needs direction, lungs are clear dim t/o, resp even and unlabored, no cough noted, but pt states she has a productive cough, hrr, 2+ edema noted to b/l negro, will place purwick, power glide to tabitha site is clear and patent, btx4, abd flat soft nontender, incont of bowel/bladder, skin is red on bottom inside, maew, weak, jacquie call light in reach.
--- NOTE | 2022-09-17 18:58 | NUR ---
pt is very sleepy, has a flat affect, not really participating, seems very depressed, no acute changes this shift. call light in reach.
[2022-09-17 20:16] VITALS: BP 125/70
[2022-09-18 06:06] VITALS: BP 114/66
[2022-09-18 06:10] LABS: Albumin, Blood 2.4 g/dL (3.4-5.0); Albumin/Globulin Ratio 0.7 (0.8-1.8); Bilirubin, Total 0.7 mg/dL (0.1-1.0); Bun/Creatinine Ratio 11.8 (12.0-20.0); Creatinine, Blood 0.76 mg/dL (0.40-1.00); Globulin, Blood 3.4 g/dL (2.2-4.0); Magnesium, Blood 1.8 mg/dL (1.6-2.4); Potassium, Blood 3.5 mmol/L (3.5-5.5); Total Protein, Blood 5.8 g/dL (6.4-8.2)
[2022-09-18 07:28] VITALS: BP 122/68
--- NOTE | 2022-09-18 10:26 | NUR ---
PATIENT BACK FROM CT, PATEINT VOMITED IN CT AND WAS MEDICATED WITH ZOFRAN, DENIES N/V PRESENTLY, CALL LIGHT WITH IN REACH
--- NOTE | 2022-09-18 10:30 | NUR ---
CT SCAN RN NOTE PT VOMITING WHILE IN ROUTE TO CT WITH TRANSPORTER. PT'S HOB ELEVATED. PT SUCTIONED ONCE IN CT. PER PRIMARY OK FOR THIS RN TO GIVE ZOFRAN. PT MEDICATED PER EMAR. PT EVAN SCAN WELL. BACK TO ROOM 336 BY TRANSPORTER. PRIMARY RN UPDATED.
[2022-09-18 13:10] VITALS: BP 114/74
[2022-09-18 13:58] LABS: SARS-Cov-2 (COVID-19) PCR, MMC NEGATIVE (NEGATIVE)
[2022-09-18 15:51] VITALS: BP 111/68
--- NOTE | 2022-09-18 18:29 | NUR ---
MAKES NEEDS KNOWN, CIWA 8-14, MEDICATED X 2 WITH LIBRIUM FOR TREMORS, SWEATING, AND N/V. PATIENT TO BE DISCHARGED TO [facility] TOMORROW, PATIENT NEEDS TO INCREASE ALERTNESS AND DECREASE CIWA BEFORE ADMIT TO A SNF, HEAD CT NEGATIVE, CALL LIGHT WITH IN REACH, WILL RELAY TO PM CONOR
[2022-09-18 19:27] VITALS: BP 135/82
[2022-09-18] MEDS ORDERED: XARELTO20 M1 PO (22:28)
[2022-09-18] MEDS ORDERED: VENLAFAXINE HCL75 M1 PO (22:30)
[2022-09-18] MEDS ORDERED: TOLTERODINE TART4 MG PO (22:31)
[2022-09-18] MEDS ORDERED: EFFEXOR XR37.5 MG PO (22:53)
[2022-09-18] MEDS ORDERED: IPRATROPIUM BRO30 ML (22:56)
--- NOTE | 2022-09-19 03:54 | NUR ---
SHIFT SUMMARY 72 YR F ADMITTED ON 09/13/22 FOR CHOLECYSTITIS. FULL CODE. NO ACUTE CHANGES THIS SHIFT. PT HAS BEEN SLEEPING AND HAS DISPLAYED NO AGITATION. FOR MOST OF THIS SHIFT. SHE ASKED TO USE THE PHONE EARLY IN THE SHIFT AND WAS ABLE TO RECALL THE PHONE NUMBER OF HER FROM [facility]. SHE HAS BEEN ABLE TO MAKE HER NEEDS KNOWN AND HAS SHOWN NO SIGNS OF HALLUCINATIONS, AUDITORY OR VISUAL. LAST CIWA AT APPROX 0330 SCORED A ZERO.
[2022-09-19 05:09] VITALS: BP 145/81
[2022-09-19 06:15] LABS: Bun/Creatinine Ratio 11.3 (12.0-20.0); Calcium, Blood 9.4 mg/dL (8.5-10.1); Creatinine, Blood 0.8 mg/dL (0.40-1.00); Potassium, Blood 3.7 mmol/L (3.5-5.5)
[2022-09-19 07:47] VITALS: BP 141/72
--- NOTE | 2022-09-19 12:55 | NUR ---
MALIK MCALLISTER AT BEDSIDE, WITH PATIENTS FRIEND, PT IN WORKING WITH PATIENT
[2022-09-19 15:57] VITALS: BP 121/86
--- NOTE | 2022-09-19 17:04 | NUR ---
SLOW RESPONSES, WITHDRAWN, FAMILY AT BEDSIDE, PATIENT VERY TREMOUROUS, ORIENTED TO ALL, DROSY/LETHARGIC, DR CATHERINE SPOKE WITH PATIENT, DAUGHTER AND CHANA. PT WORKED WITH PATEINT WITH FAMILY. NO ACUTE CHANGES OR IMPROVEMENT. CALL LIGHT WITH IN REACH, WILL RELAY TO PM RN
[2022-09-19 19:41] VITALS: BP 135/76
[2022-09-20 03:46] VITALS: BP 144/77
[2022-09-20 05:30] LABS: BASOPHILS ABSOLUTE AUTO 0.07 K/mm3 (0.00-0.23); BASOPHILS PERCENT AUTO 1 % (0-2); EOSINOPHILS ABSOLUTE AUTO 0.28 K/mm3 (0.00-0.68); EOSINOPHILS PERCENT AUTO 4 % (0-6); Hematocrit 40.7 % (33.0-51.0); Hemoglobin 13.9 g/dL (11.5-16.0); IMMATURE GRAN ABSOLUTE AUTO 0.04 K/mm3 (0.00-0.10); IMMATURE GRAN PERCENT AUTO 1 % (0-1); LYMPHOCYTES PERCENT AUTO 13 % (21-46); MONOCYTES ABSOLUTE AUTO 1.39 K/mm3 (0.16-1.47); MONOCYTES PERCENT AUTO 22 % (4-13); Mean Corpuscular HGB 35.8 pg (26.0-34.0); Mean Corpuscular HGB Conc 34.2 g/dL (31.5-36.5); Mean Corpuscular Volume 105 fL (80-100); Mean Platelet Volume 11.2 fL (9.1-12.4); NEUTROPHILS ABSOLUTE AUTO 3.82 K/mm3 (1.96-9.15); NEUTROPHILS PERCENT AUTO 60 % (41-73); Platelet Count 188 K/mm3 (150-400); RDW Coefficient Variation 13.1 % (11.7-14.2); RDW Standard Deviation 50.9 fL (35.1-46.3); Red Blood Cell Count 3.88 M/mm3 (3.80-5.20)
[2022-09-20 05:56] LABS: Bun/Creatinine Ratio 9.3 (12.0-20.0); Calcium, Blood 9.4 mg/dL (8.5-10.1); Creatinine, Blood 0.86 mg/dL (0.40-1.00); Potassium, Blood 3.8 mmol/L (3.5-5.5)
--- NOTE | 2022-09-20 06:00 | NUR ---
SHIFT SUMMARY NOC PT A/O X 3/4. PLEASANT AND COOPERATIVE WITH CARE. PT IS WITHDRAWING FROM ALCHOHOL AND HAS CIWA Q4H. PT HAD 2 CIWA SCORES OF 9 AND GIVEN 25MG LIBRIUM PER PROTOCOL. PT IS SIGNIFICANT TREMORS T/O. PT AFFECT WAS FLAT AT BEGINNING OF SHIFT AND HAS IMPROVED DURING SHIFT. PT HAS PUREWICK IN PLACE DRAINING CATHI URINE TO SUCTION. PT WAS ON 2L/NC O2 FOR MAJORITY OF SHIFT AND NOW IS TOLERATED RA MAINTAINING SPO2 >95%. PT AGREED TO WEAR CPAP FOR SLEEPING. PT HAS PG IN CANDICE THAT DOES NOT DRAW. PT IS SCHEDULED TO DISCHARGE TO [facility] FOR REHAB ONCE ALCOHOL WITHDRAWAL HAS BEEN MANAGED, AND F/U WITH SURGICAL FOR CHOLY. PT IS CURRENTLY RESTING WITH BED IN LOWEST POSITION, AND CALL LIGHT WITHIN REACH.
[2022-09-20 07:34] VITALS: BP 134/76
--- NOTE | 2022-09-20 12:19 | NUR ---
MD LING. MS ZAPATA SAID SHE HAS NOT HAD A BM SINCE SHE WAS ADMITTED. ALSO C/O 8/10 HEADACHE THAT DID NOT RESOLVE WITH TYLENOL GIVEN THIS AM. CIWA SCORE 15. PT FLAT AFFECT, TREMORS NOT VISIBLE, DESCRIBES SEEING BLACK BUGS AND FEELING ITCHY. C/O MILD NAUSEA DESPITE ZOFRAN THIS AM. TOLERATING SIPS OF WATER AND A LITTLE FOOD. FAMILY AT BEDSIDE. DR KATHRYN GILLESPIE NOTIFIED. ORDER FOR IBUPROFEN AND DOCUSATE ENTERED INTO [facility].
--- NOTE | 2022-09-20 15:45 | NUR ---
SHIFT SUMMARY MS ZAPATA IS SLEEPY BUT HAS AROUSED EASILY. ORIENTATED TO HER NAME, DATE, LOCATION AND WHY SHE IS HERE IN THE HOSPITAL. SHE IS WEAK BUT ABLE TO ASSIST WITH TURNS AND MOVEMENT. HER FAMILY SAID SHE IS MORE AWAKE AND STRONGER TODAY THAN YESTERDAY. FLAT AFFECT FOR THE MOST PART, SAID THAT SHE SEES BLACK BUGS ADN FEELS ITCHY, HAS A HEADACHE, MILD NAUSEA. GIVEN TYLENOL THIS AM, SHE DECLINED IBUPROFEN SHE SAID HER DOCTOR HAD TOLD HER NOT TO TAKE IT. LESS TREMULOUS, PT SAID SHE STILL FEELS TREMULOUS AT TIMES, BUT NOT VISIBLE NOW. CIWA SCORES WERE 14 AND 15, GIVEN LIBRIUM PO. INCONTINENT OF URINE, PUREWICK IN PLACE. LOW UOP TODAY - PO FLUIDS ENCOURAGED AND WILL CONTINUE TO ENCOURAGE. SHE IS DRINKING A MILKSHAKE NOW BUT ONLY TOOK 10% OF BREAKFAST AND LUNCH. PT REPORTS NO BM SINCE HOSPITAL ADMISSION, STARTED ON DOCUSATE TODAY. BED LOW, CALL LIGHT IN REACH.
[2022-09-20 16:02] VITALS: BP 121/74
[2022-09-20 19:31] VITALS: BP 132/67
--- NOTE | 2022-09-21 03:11 | NUR ---
SHIFT SUMMARY NOC PT A/O X 4. HAD A CIWA SCORE OF 9 AND REPORTED SEEING BLACK BUGS ON WALL, FEELING NAUSEA AND VOMITED. TREMORS NOT SEVERE PREVIOUS NIGHT. PT MEDICTED WITH LIBRIUM/ZOFRAN. PT WAS DRINKING WATER EARLY IN SHIFT, BUT STOPPED AFTER VOMITING. PT HAS LOW UOP. PT HAS BEEN MAINTAINING SPO2 OF >92% ON RA. PT REQUESTED CPAP FOR SLEEP. PT IS CURRENTLY RESTING WITH BED IN LOWEST POSITION, AND CALL LIGHT WITHIN REACH. WILL CONTINUE TO MONITOR WITHDRAWAL SYMPTOMS.
[2022-09-21 04:51] VITALS: BP 133/82
[2022-09-21 05:49] LABS: Albumin, Blood 2.5 g/dL (3.4-5.0); Albumin/Globulin Ratio 0.7 (0.8-1.8); Bilirubin, Total 0.9 mg/dL (0.1-1.0); Bun/Creatinine Ratio 11.9 (12.0-20.0); Calcium, Blood 9.1 mg/dL (8.5-10.1); Creatinine, Blood 0.84 mg/dL (0.40-1.00); Globulin, Blood 3.8 g/dL (2.2-4.0); Potassium, Blood 3.9 mmol/L (3.5-5.5); Thyroid Stimulating Hormone 14.9 uIU/mL (0.360-4.800); Total Protein, Blood 6.3 g/dL (6.4-8.2)
[2022-09-21 07:35] VITALS: BP 125/77
[2022-09-21 07:44] LABS: Free Thyroxine 1.02 ng/dL (0.70-1.60); Triiodothyronine, Free 1.95 pg/mL (2.18-3.98)
[2022-09-21 11:41] LABS: SARS-Cov-2 (COVID-19) PCR, MMC NEGATIVE (NEGATIVE)
[2022-09-21 15:56] VITALS: BP 102/66
--- NOTE | 2022-09-21 16:44 | NUR ---
SHIFT SUMMARY PATIENT STILL SEEING BLACK SPIDERS ON HER WALL TODAY, C/O ANXIETY, ONLY ORIENTED TO SELF AND LOCATION TODAY. MEDICATED PER EMAR WITH RELIEF OF ANXIETY. PATIENT UP TODAY TO CHAIR, 2 PERSON ASSIST AND BACK TO BED WITH MASOOD. TIMOTEO IN PLACE. PATIENT ORIENTED TO CALL LIGHT. BED ALARM ON AND AND BED IN LOW POSITION. WILL CONTINUE TO MONITOR.
--- NOTE | 2022-09-21 17:23 | NUR ---
THIS LETTER OF CREDIT CLERK HAS REVIEWED AND AGREES WITH ALL NOTES AND ASSESSMENTS BY CONOR ARCHIE.
[2022-09-21 19:12] VITALS: BP 110/69
[2022-09-22 05:14] VITALS: BP 149/79
[2022-09-22 05:54] LABS: Creatinine, Blood 0.9 mg/dL (0.40-1.00); Potassium, Blood 4.1 mmol/L (3.5-5.5)
--- NOTE | 2022-09-22 06:35 | NUR ---
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
[2022-09-22 07:36] VITALS: BP 115/65
[2022-09-22 15:52] VITALS: BP 93/65
[2022-09-22 15:54] VITALS: BP 99/69
--- NOTE | 2022-09-22 16:34 | NUR ---
SHIFT SUMMARY PATIENT MOST RECENT CIWAA IS 7. PATIENT WITH SOME NAUSEA TODAY, MEDICATED WITH ZOFRAN, HEADACHE MANAGED WELL WITH TYLENOL. PATIENT STATES SHE IS SEEING MUCH LESS BLACK SPIDERS ON THE WALL AND LESS OFTEN. BED IN LOW POSITION WITH BED ALARM ON. CALL LIGHT IN REACH. WILL CONTINUE TO MONITOR.
[2022-09-22 19:07] VITALS: BP 113/84
--- NOTE | 2022-09-23 06:27 | NUR ---
PT IS A&O4, 2 ASSIST TO THE CHAIR, 2L NC OVERNIGHT DURING SLEEP, PT REFUSED CPAP, NO HALLUCINATIONS THIS SHIFT, PRN PAIN MEDICINE GIVEN PER JUL, NO ACUTE OVERNIGHT EVENTS, CONTINUE POC
[2022-09-23 07:23] VITALS: BP 101/63
[2022-09-23] MEDS ORDERED: B-1100 M1 PO (14:47)
[2022-09-23] MEDS ORDERED: BUSP5 PO (14:48)
[2022-09-23] MEDS ORDERED: FOLI1 PO (14:48)
[2022-09-23] MEDS ORDERED: TAMS.4ER PO (14:49)
[2022-09-23] MEDS ORDERED: LEVO-T50 MCG PO (14:49)
--- NOTE | 2022-09-23 15:23 | NUR ---
SHIFT SUMMARY PT AWAKE DURING SHIFT REPORT. NO C/O, DENIED NEEDS AT THAT TIME. CALL LT IN REACH. PT WITH CHRONIC ETOH ABUSE, NO LONGER ON CIWA'S. PT TO D/C TO SNF, PER REPORT. RENAL TECHNICIAN LATER IN TO REPORT PT TO D/C TO DAUGHTER'S HOME IN [place]. PT/OT IN TO WORK WITH PT TODAY, BUT PT REFUSED. UP TO CHAIR FOR LUNCH AND LATER BACK TO BED. 1P ASSIST USING FWW AND GB. PT UP TO BSC FOR BM; CONTINENT AND INCONTINENT OF BLADDER. IV TO CANDICE D/C'D WNL'S. PT DRESSED WITH ASSIST FROM S/O. PT TO D/C VIA W/C WITH TRANSPORT. MEDS FAXED TO [facility], PER PT REQUEST. S/O TO SCRIBING MACHINE OPERATOR FOR PT. BELONGINGS TO GO WITH PT. D/C INSTRUCTIONS REVIEWED WITH PT AND S/O.
== END 2022-09-23 16:25 | disposition home health service (06) | DRG 897 ==
LOC: ER 13:08 → ICUW 13:09 → ICUE 13:09 → MEDS 13:09 → ICUE 21:41 → MEDS 09-13 05:31 → ICUE 09-13 05:31 → PCU 09-14 20:07 → MEDS 09-17 16:09 → ENPENDDIS 09-18 11:55 → MEDS 09-23 16:25
PROVIDERS: Family Medicine; Hospitalist; Internal Medicine; Student in an Organized Health Care Education/Training Program; ADMIT Internal Medicine
PROC: HZ2ZZZZ Detoxification Services for Substance Abuse Treatment (ICD-10-PCS; principal; 2022-09-13)
DX: F10.231 Alcohol dependence with withdrawal delirium (principal); E87.20 Acidosis, unspecified; K80.20 Calculus of gallbladder without cholecystitis without obstruction; E78.5 Hyperlipidemia, unspecified; Z20.822 Contact with and (suspected) exposure to COVID-19; G89.29 Other chronic pain; E66.9 Obesity, unspecified; E87.6 Hypokalemia; G31.2 Degeneration of nervous system due to alcohol; K70.10 Alcoholic hepatitis without ascites; R33.9 Retention of urine, unspecified; K57.30 Diverticulosis of large intestine without perforation or abscess without bleeding; F32.A Depression, unspecified; K76.0 Fatty (change of) liver, not elsewhere classified; E83.42 Hypomagnesemia; J45.909 Unspecified asthma, uncomplicated; F17.290 Nicotine dependence, other tobacco product, uncomplicated; E03.9 Hypothyroidism, unspecified; I10 Essential (primary) hypertension; Z71.41 Alcohol abuse counseling and surveillance of alcoholic; D75.89 Other specified diseases of blood and blood-forming organs; G47.33 Obstructive sleep apnea (adult) (pediatric); Z99.89 Dependence on other enabling machines and devices; Z68.36 Body mass index [BMI] 36.0-36.9, adult; Z87.442 Personal history of urinary calculi; Z90.49 Acquired absence of other specified parts of digestive tract; Z90.722 Acquired absence of ovaries, bilateral; Z90.5 Acquired absence of kidney; Z88.0 Allergy status to penicillin; Z88.2 Allergy status to sulfonamides; Z88.8 Allergy status to other drugs, medicaments and biological substances; Z91.040 Latex allergy status; Z79.899 Other long term (current) drug therapy
CPT/HCPCS: 0241U; 36415; 70450; 71046; 74177; 76705; 78227; 80048; 80053; 81001; 82140; 82607; 82746; 82803; 82947; 83690; 83735; 84439; 84443; 84481; 85025; 85060; 85610; 93005; 93010; 93970; 94660; 94760; 94762; 96361; 96365-59; 96366; 96375; 97110; 97110-CQ; 97116; 97162; 97166; 97530; 97535; 99285-25; A9270; A9537; C1751; J0696; J1650; J1790; J1956; J2060; J2405; J2805; J3010; J3411; J3475; J3480; J7030; J7042; J7050; J7070; Q9967; U0004

== ENCOUNTER → 2023-03-27 | Outpatient (CLI) | payer MEDICARE, BC ==
[~2023-03-27] MED LIST changes: +B-1100 M1 PO; +BUSP5 PO; +EFFEXOR XR37.5 MG PO; +FOLI1 PO; +IPRATROPIUM BRO30 ML; +LEVO-T50 MCG PO; +TOLTERODINE TART4 MG PO; +VENLAFAXINE HCL75 M1 PO; +XARELTO20 M1 PO
== END ==
LOC: LAB 13:00 → LAB SHORT 13:00
DX: R35.0 Frequency of micturition (principal)
CPT/HCPCS: 87086

== ENCOUNTER → 2023-04-14 | Outpatient (CLI) | payer MEDICARE, BC | LOC: LAB 15:32 → LAB SHORT 15:32 | DX: N39.0 Urinary tract infection, site not specified (principal) | CPT/HCPCS: 87077; 87086; 87186 ==

== ENCOUNTER → 2023-08-02 | Outpatient (CLI) | payer MEDICARE, BC | LOC: LAB 16:00 → LAB SHORT 16:00 | DX: N39.0 Urinary tract infection, site not specified (principal) | CPT/HCPCS: 87086 ==

== ENCOUNTER → 2024-06-15 | Outpatient (CLI) | payer MEDICARE | END | disposition home or self-care (01) | LOC: LAB SHORT 15:09 → LAB 15:09 | DX: N39.0 Urinary tract infection, site not specified (principal) | CPT/HCPCS: 87077; 87086; 87186 ==

== ENCOUNTER → 2025-01-11 | Outpatient (CLI) | payer MEDICARE | END | disposition home or self-care (01) | LOC: LAB 17:11 → LAB SHORT 17:11 | DX: N39.0 Urinary tract infection, site not specified (principal); R35.0 Frequency of micturition; R30.0 Dysuria | CPT/HCPCS: 87077; 87086; 87186 ==